=== PATIENT | female | born 1930 | race Caucasian/White ===

== ENCOUNTER 2017-06-09 10:47 | Emergency (ER) | payer MEDICARE ==
[~2017-06-09] VITALS: Ht 154.9 cm; Wt 38.1 kg
[~2017-06-09 10:47] MED LIST: ASPIR 8181 MG PO; B12 INJECTION IM; BRILINTA90 MG PO; CALCIUM 500 +1 EAC5 PO; COREG3.125 MG PO; LIPITOR 20 MG T20 M1 PO; LISINOPRIL2.5 M1 PO; NEXIUM40 MG PO; NITROGLYCERIN0.4 MG SUBLING; OCUVITE TABLET1 EAC1 PO; VIT C-BIOFLAVO1 EACH PO
[2017-06-09 11:31] LABS: HEMATOCRIT 28.8 % (37.0-47.0); HEMOGLOBIN 9.5 gm/dL (12.0-15.0); MCH 26.1 pg (26.0-34.0); MCHC 32.8 g/dL (28.0-37.0); MCV 79.7 fL (80.0-100.0); MPV 7.5 fl. (7.2-11.1); NUCLEATED RBCS 0 /100WBC; PLATELET COUNT* 321 thou/uL (150-400); RBC 3.61 mil/uL (4.20-5.00); RDW-CV 15.7 % (10.5-14.5)
[2017-06-09 11:39] LABS: APTT 26.4 Seconds (25.0-31.3); CALCIUM 9.1 mg/dL (8.5-10.1); CREATININE 1.2 mg/dL (0.6-1.3); POTASSIUM 4.1 mmol/L (3.5-5.1)
[2017-06-09 11:43] LABS: ALBUMIN 2.7 g/dL (3.4-5.0); TOTAL BILIRUBIN 0.2 mg/dL (<0.1-1.0); TOTAL PROTEIN 6.7 g/dL (6.4-8.2)
[2017-06-09 12:01] LABS: ABSOLUTE BASOPHILS 0.1 thou/uL (0.0-0.2); ABSOLUTE EOSINOPHILS 0.1 thou/uL (0.0-0.7); ABSOLUTE NEUTROPHILS 10.8 thou/uL (1.6-8.1); ANISOCYTOSIS 1+; PLATELET ESTIMATE ADEQUATE
[2017-06-09] MEDS ORDERED: LEVAQUIN 750 M750 MG PO (14:09)
[2017-06-09] MEDS ORDERED: MUCUS ER600 MG PO (14:09)
[2017-06-09] MEDS ORDERED: HYDROCODONE-AP1 EAC6 PO (14:09)
[2017-06-09 14:46] VITALS: BP 159/85
--- NOTE | 2017-06-09 14:57 | EKG ---
[place] [address] ELECTROCARDIOGRAM REPORT Name: OSIRIS MICHELE [id number] Admission: 06/09/17 Attend Phys: Discharge: 06/09/17 Date of : [birth year] Report #: [id number] THIS REPORT FOR: //name// [facility] ED Test Date: 2017-06-09 Test Time: 11:41:57 Pat Name: OSIRIS MICHELE Department: Room: Gender: F Special Educator: Jenna SOLANO : 1930 Requested By: Anand Mabry Order Number: [id number] MD: Steven Jacob Measurements Intervals [place] Rate: 75 P: 74 W[place]: 168 QRS: 41 QRSD: 89 T: 34 QT: 397 QTc: 444 Interpretive Statements Sinus rhythm nonspecific st changes Low voltage, extremity leads Electronically Signed On 06-09-2017 14:56:49 STATISTICAL PROGRAMMER ANALYST by Steven Jacob [email or web address] <ELECTRONICALLY SIGNED> By: Steven Jacob MD, [facility] 06/09/17 1456 [id number] [id number] Steven Jacob MD, FACC /EPI
== END 2017-06-09 14:47 | disposition home or self-care (01) ==
LOC: M.ERS 10:47
PROVIDERS: Emergency Medicine Emergency Medical Services
DX: J18.9 Pneumonia, unspecified organism (principal); J45.909 Unspecified asthma, uncomplicated; F10.99 Alcohol use, unspecified with unspecified alcohol-induced disorder; Z98.890 Other specified postprocedural states; Z88.1 Allergy status to other antibiotic agents; Z88.8 Allergy status to other drugs, medicaments and biological substances; W18.39XA Other fall on same level, initial encounter; Y93.89 Activity, other specified; Y92.098 Other place in other non-institutional residence as the place of occurrence of the external cause; Y99.8 Other external cause status

== ENCOUNTER 2017-11-13 10:38 | Emergency (ER) | payer MEDICARE ==
[~2017-11-13] VITALS: Ht 154.9 cm; Wt 39.5 kg
[~2017-11-13 10:38] MED LIST changes: +HYDROCODONE-AP1 EAC6 PO; +LEVAQUIN 750 M750 MG PO; +MUCUS ER600 MG PO
[2017-11-13] MEDS ORDERED: KEFLEX500 M1 PO (11:48)
[2017-11-13 12:04] VITALS: BP 150/78
== END 2017-11-13 12:05 | disposition home or self-care (01) ==
LOC: M.ERS 10:38
DX: L03.114 Cellulitis of left upper limb (principal); J45.909 Unspecified asthma, uncomplicated; Z88.8 Allergy status to other drugs, medicaments and biological substances; Z88.1 Allergy status to other antibiotic agents; Z90.49 Acquired absence of other specified parts of digestive tract